=== PATIENT | male | born 1960 | race Caucasian/White ===

== ENCOUNTER 2016-11-01 00:16 | Inpatient (IN) | payer OTHER ==
[~2016-11-01] VITALS: Ht 172.7 cm; Wt 75.7 kg
[2016-11-01] VITALS (23 sets, daily range): BP systolic 86–145; BP diastolic 43–92
--- NOTE | ~2016-11-01 | PR ---
[place], [place] PROGRESS NOTE [id number] UNIT #: [id number] ROOM: [place] [address] DOCTOR: FRANCO KITCHEN MD BIRTHDATE: [birth year] DOS: 11/02/2016 CARDIOLOGY PROGRESS NOTE SUBJECTIVE: The patient was seen today at his bedside in the Intensive Care Unit with the help of a sign industrial millwright. The patient's symptoms have improved overnight. He was able to get a reasonable night's rest. He is now lying flat and states that he is breathing easily. He still does have an upset stomach, but he was able to eat breakfast. His breathing has improved, and he denies any chest pain. PHYSICAL EXAMINATION: VITAL SIGNS: His pulse is 62 and regular, blood pressure is 92/41. He does have a low-grade fever of 99.8, oxygen saturation is 96% with supplemental nasal cannula oxygen. HEENT: Normocephalic, atraumatic. Extraocular muscles are intact. NECK: Supple. He has mild jugular distention with hepatojugular reflux. Carotids are full without bruits. LUNGS: Respirations are unlabored at rest. He does have scattered wheezes and a few crackles in the right lung more than the left. He has no presacral edema or chest wall tenderness. HEART: Has a regular rhythm. He has a fourth and a third heart sound. The PMI is somewhat displaced laterally. ABDOMEN: Soft and normoactive. EXTREMITIES: Showed no edema. LABORATORY DATA: Hemoglobin is 12.5, white count 8500, platelet count 150,000. Sodium 141, potassium 3.9, BUN 20, creatinine 1.46. Troponin levels have remained constant at about 0.05 without any diagnostic rise or fall. IMPRESSION: 1. Severe ischemic cardiomyopathy. 2. Chronic systolic congestive heart failure with acute exacerbation. 3. Acute renal insufficiency. 4. Presentation consistent with acute gastroenteritis complicated by hypotension, I believe that our fluid resuscitation of this process resulted in his acute congestive heart failure. He seems to be stabilizing now. PLAN: We will continue supportive care. Once he has stabilized further, I think that a reassessment by the lime sludge kiln operator at [facility] would be appropriate to see if he is a candidate for biventricular pacing. We thank the hospitalist service for asking our advice regarding his care. [place], [place] PROGRESS NOTE NAME: JOSE SIMENTAL UNIT #: [id number] ROOM: [place] [address] DOCTOR: FRANCO KITCHEN MD BIRTHDATE: [birth year] FRANCO KITCHEN MD CM:PNTRANS [phone] FRANCO KITCHEN MD 11/03/16 0124 interface
--- NOTE | ~2016-11-01 | PR ---
[place], [place] PROGRESS NOTE [id number] UNIT #: [id number] ROOM: 512 DOCTOR: FRANCO KITCHEN MD BIRTHDATE: [birth year] DOS: 11/06/2016 CARDIOLOGY PROGRESS NOTE SUBJECTIVE: The patient was seen today 11/06/2016 prior to his being discharged to home. He feels considerably better, although he still does have some epigastric tenderness. His breathing is good. He has no peripheral edema. PHYSICAL EXAMINATION: VITAL SIGNS: His pulse is 63 and regular, blood pressure is 110/50. He is afebrile. NECK: Supple. He has no jugular distention. CHEST: Clear. HEART: Has a regular rhythm. EXTREMITIES: Showed no edema. LABORATORY DATA: Hemoglobin is 10.4. Sodium is 143, potassium 3.6, BUN 17, creatinine 0.96. MEDICATIONS: At the time of discharge include atorvastatin 80 mg per day, metoprolol 12.5 mg twice a day, furosemide 20 mg daily, pantoprazole 40 mg daily, prednisone on a tapering dose schedule, doxycycline 100 mg twice a day, Carafate 1 gram twice a day, metoclopramide 5 mg at h.s., Entresto 24/ one daily, senna twice a day p.r.n., aspirin 325 mg daily, formoterol by inhaler 2 puffs every 12 hours, and amiodarone 200 mg twice a day. I would like to see him back in the office in about 2 to 3 weeks. I think that he also should be reassessed by our scrip clerk and considered for upgrade of his ICD to a biventricular cardiac synchronization device. We will arrange for that when we see him in our office for followup. I thank the hospitalist physicians for asking our advice regarding his care. FRANCO KITCHEN MD CM:PNTRANS [id number] FRANCO KITCHEN MD 12/13/16 1341 interface
--- NOTE | ~2016-11-01 | CON ---
[place], [place] REPORT OF CONSULTATION NAME: JOSE SIMENTAL UNIT #: [id number] ROOM: 512 DOCTOR: PEPE SCHERER,VICTOR M BIRTHDATE: [birth year] DOS: GASTROENDOSCOPIC CONSULTATION REPORT HISTORY OF PRESENT ILLNESS: The patient has presented with chief complaint of epigastric abdominal pain, nausea, vomiting to the emergency room, atypical chest pain as well. The patient has been taking aspirin at home. PAST MEDICAL HISTORY: Anxiety, COPD, cardiomyopathy, history of hypertension, hyperlipidemia, deaf and nicotine dependent person. PAST SURGICAL HISTORY: Coronary artery stent. SOCIAL HISTORY: Nonalcohol drinker. Smoker. Cannabis consumer. FAMILY HISTORY: Noncontributory. ALLERGIES: NICOTINE. MEDICATIONS: List has been reviewed including aspirin, pantoprazole, and multiple others reviewed. REVIEW OF SYSTEMS: HEENT: Denies double vision, blurred vision. RESPIRATORY: Denies shortness of breath. CARDIOVASCULAR: Atypical chest pain. DIGESTIVE SYSTEM: Epigastric abdominal pain. PHYSICAL EXAMINATION: VITAL SIGNS: Stable. GENERAL: Epigastric distress, deaf, very difficult to communicate, however. HEENT: Benign. NECK: Supple, no thyromegaly, no cervical lymphadenopathy. CHEST: Symmetric anatomy, equal expansion. No wheeze, no rhonchi. HEART: Normal sinus rhythm, no gallop, no murmur. ABDOMEN: Soft. No hepato-organomegaly. Bowel sounds present. EXTREMITIES: No cyanosis, no pedal edema. NEUROLOGIC: Alert and oriented, very hard of hearing. LABORATORY DATA: Reviewed. Records reviewed. Electrolytes balanced. H and H 11 and 36, white blood cell 8.9. Labs and records reviewed. CBC, differentials, troponins all reviewed. IMPRESSION: Epigastric distress, dyspepsia, abdominal pain, very hard of hearing. PLAN AND DISCUSSION: We are going to endoscopically assessed and clinical reevaluation. Thank you very much indeed. [place], [place] REPORT OF CONSULTATION NAME: JOSE SIMENTAL UNIT #: [id number] ROOM: 512 DOCTOR: PEPE SCHERER,VICTOR M BIRTHDATE: [birth year] Other adjunctive diagnoses as outlined in paragraph of past medical, surgical history expressed above. VICTOR M CANTU MD CM:CONSTR:REPORT OF CONSULTATION 1640 12/13/16 1343 interface
--- NOTE | ~2016-11-01 | PR ---
[place], [place] PROGRESS NOTE NAME: JOSE SIMENTAL UNIT #: [id number] ROOM: 512 DOCTOR: FRANCO KITCHEN MD BIRTHDATE: [birth year] DOS: 11/05/2016 SUBJECTIVE: The patient was seen at his bedside today for followup of his severe ischemic cardiomyopathy, chronic congestive heart failure and atypical chest pain. This morning, he was feeling well, but now he does have some epigastric and mid chest pain. He seems to think that his stomach is the problem. He does not appear to be particularly uncomfortable. PHYSICAL EXAMINATION: VITAL SIGNS: Today, his pulse is 60 and regular. Blood pressure is 98/50. He is afebrile. NECK: Supple. He has no jugular distention. His carotids are full. LUNGS: Respirations are unlabored. His chest is clear. HEART: Regular rhythm with an S4 gallop and a soft S3. ABDOMEN: Slightly distended, and he is tender in the epigastrium. He does admit that palpation of the abdomen makes his chest discomfort, worse. EXTREMITIES: Showed no significant edema. LABORATORY DATA: I reviewed his monitor strips. He has been in sinus rhythm with a bundle branch block. I think that his current symptoms are more related to his gastritis than they are his underlying cardiac disease. IMPRESSION: 1. Acute gastritis. 2. Severe ischemic cardiomyopathy. 3. Chronic congestive heart failure, which appears to be fairly well compensated. 4. Low output cardiac failure. 5. History of hypertension. 6. History of hyperlipidemia. 7. Obstructive lung disease. 8. Presence of implantable cardioverter defibrillator. 9. Gastroesophageal reflux disease. PLAN: We will treat him symptomatically today with Mylanta. He is being treated also for possible pneumonitis. Once his noncardiac issues have settled, we will discuss referring him back to the sap developer to consider upgrading his ICD to a biventricular device. We thank the hospitalist group for asking our advice regarding his care. [place], [place] PROGRESS NOTE NAME: JOSE SIMENTAL UNIT #: [id number] ROOM: 512 DOCTOR: FRANCO KITCHEN MD BIRTHDATE: [birth year] FRANCO KITCHEN MD CM:PNTRANS [phone] FRANCO KITCHEN MD 11/06/16916 interface
--- NOTE | ~2016-11-01 | PR ---
[place], [place] PROGRESS NOTE NAME[id number] UNIT #: [id number] ROOM: 512 DOCTOR: FRANCO KITCHEN MD BIRTHDATE: [birth year] DOS: 11/04/2016 SUBJECTIVE: The patient was seen at his bedside today, 11/04/2016, for followup of his ischemic cardiomyopathy and chest pain. He is comfortable today and has not had any further chest pain. He is breathing easily and lying almost flat in bed. OBJECTIVE: VITAL SIGNS: Today, his pulse is 62 and regular, blood pressure is 107/56. He is afebrile. He weighs 75.8 kg with a body mass index of 25.4. NECK: Supple. He does not have jugular distention. Carotids are full. LUNGS: Respirations are unlabored. His chest is clear. HEART: Has a regular rhythm with an S4 and an S3 gallop. ABDOMEN: Soft. EXTREMITIES: Showed no edema. IMPRESSION: 1. Severe ischemic cardiomyopathy. The patient appears to be clinically compensated without any evidence of heart failure at this time. 2. Chest pain. This appears to be more related to dyspepsia on this admission. He has not shown any signs of acute coronary ischemia. 3. History of hypertension. 4. Chronic obstructive pulmonary disease. 5. Gastroesophageal reflux disease and gastritis. 6. Left bundle-branch block. 7. Implantable cardioverter defibrillator in place. PLAN: We will continue his current medical regimen. When he is more stable, an electrophysiology reassessment should be obtained to consider whether he is a candidate for a biventricular resynchronization upgrade to his ICD. We thank the hospitalist group for asking our advice regarding his care. FRANCO KITCHEN MD CM:PNTRANS 16 [phone] FRANCO KITCHEN MD 11/05/161809 interface
--- NOTE | ~2016-11-01 | O ---
[place], [place] OPERATIVE NOTE [facility]: [id number] UNIT #: [id number] ROOM: 512 DOCTOR: PEPE SCHERER,VICTOR M BIRTHDATE: [birth year] DOS: INDICATION: The patient is undergoing investigation for epigastric atypical chest pain. PROCEDURE: Today's procedure part of investigation is panendoscopy plus biopsy. PREMEDICATION: Versed and Diprivan. SCOPE: Olympus forward-viewing gastroscope, Q10 video. REPORT: After putting the patient in the left lateral position and after application of lubricant to the scope, the scope was introduced; thereafter, under direct visualization, I advanced through the length of the esophagus without difficulty. Bile reflux was noticed. Gastritis was seen. Photographic series obtained. Duodenal bulb, second and third part within normal limits. The patient extubated, tolerated procedure well. IMPRESSION AND PLAN: Bile reflux, gastritis, status post biopsy. PLAN AND DISCUSSION: Supportive management, clinical reassessment. Thank you very much indeed. Protonix was recommended 40 mg every day. On the other hand due to small hiatal hernia has been noticed, it is not a major issue; however, I think in view of the ambiguity of the history and expression on this patient, the CT scan of the abdomen and pelvis would be recommended. VICTOR M CANTU MD CM:OPRECORD:OPERATIVE NOTE 1640 0 VICTOR M CANTU MD 11/04/16620 interface
[~2016-11-01 00:16] MED LIST: ALBUTEROL0.09 MG/A1 INH; ALBUTEROL0.09 MG/A2 IH; ALDACTONE PO; ALDACTONE25 MG PO; AMIODARONE HCL200 MG PO; ASPIR-TRIN325 MG PO; CARDOXIN0.25 MG PO; CIPROFLOXACIN500 MG PO; COLACE100 MG PO; COREG12.5 MG PO; COREG3.125 MG PO; COREG6.25 MG PO; COUMADIN2.5 M1 PO; COUMADIN5 M2 PO; Coumadin3 MG PO; DELTASONE20 MG PO; DIGITEK0.125 MG PO; DOXYCYCLINE HY100 M5 PO; DOXYCYCLINE100 M3 PO; DULE1ARO1 INH; DULER200 PO; EFFIENT10 M1 PO; ENTRESTO 24 MG1 EACH PO; FLAGYL500 MG PO; HYDROCODONE BIT1 T11 PO; IMDUR SA30 MG PO; JANTOVEN2.5 MG PO; JANTOVEN4 M1 PO; JANTOVEN5 MG PO; KEFLEX500 MG PO; LASIX40 MG PO; LEVOFLOXACIN500 MG PO; LISINOPRIL2.5 MG PO; MEDROL DOSEPAK4 MG PO; METOPROLOL SUCC25 M2 PO; MOTRIN800 MG PO; NICODERM C14 MG/24 H TD; NORCO 325 MG-51 TAB PO; OMEPRAZOLE D/R20 MG PO; PACERONE200 MG PO; PEN-VEE K500 MG PO; PERCOCET 325 MG1 TA7 PO; PRAVACHOL40 MG PO; PRAVASTATIN SOD40 MG PO; PREDNISONE10 MG PO; PREDNISONE20 MG PO; PRILOSEC20 M1 PO; PROAIR HFA0.09 MG/AC INH; PROTONIX20 MG PO; RANEXA500 M1 PO; SENNA8.6 MG PO; SINGULAIR10 MG; VICODIN 5/500 505 MG PO; VOLTAREN50 MG PO; ZITHROMAX Z PA250 MG PO; ZITHROMAX500 MG PO; [UNRECOGNIZED DRUG - REMARK]
[2016-11-01 00:46] LABS: BASO % 0.5 % (0.0-1.0); EOS % 0.1 % (1.0-4.0); HEMATOCRIT 40.7 % (42.0-52.0); HEMOGLOBIN 13.3 g/dl (14.0-18.0); LYMPH # 1.3 10*3/uL (1.3-4.4); LYMPH % 14.8 % (27.0-41.0); MEAN CELL VOLUME 95.5 fl (80.0-94.0); MEAN CORPUSCULAR HGB 31.2 pg (27.0-31.0); MEAN CORPUSCULAR HGB CONC 32.7 g/dl (33.0-37.0); MEAN PLATELET VOLUME 10.9 fl (9.6-12.3); MONO # 0.7 10*3/uL (0.1-1.0); MONO % 8.3 % (3.0-9.0); NEUT # 6.4 10*3/uL (2.3-7.9); NEUT % 75.9 % (47.0-73.0); PLATELET COUNT AUTOMATED 150 10*3/uL (130-400); RED BLOOD COUNT 4.26 10*6/uL (4.50-5.90); RED CELL DISTRI WIDTH 13.7 % (0-14.5); WHITE BLOOD COUNT 8.5 10*3/uL (4.8-10.8)
[2016-11-01 01:00] LABS: BUN 11 mg/dl (7-24); CARBON DIOXIDE 26 mmol/L (21-32); CHLORIDE 107 mmol/L (98-107); EST GLOM FILT AFRICAN AMERICAN > 60 ml/min; GLUCOSE 103 mg/dL (65-99); POTASSIUM 3.6 mmol/L (3.5-5.1); SODIUM 140 mmol/L (136-145)
[2016-11-01 06:06] LABS: BASO % 0.5 % (0.0-1.0); EOS % 0.2 % (1.0-4.0); HEMOGLOBIN 12.1 g/dl (14.0-18.0); LYMPH # 1.5 10*3/uL (1.3-4.4); LYMPH % 17.8 % (27.0-41.0); MEAN CELL VOLUME 94.6 fl (80.0-94.0); MEAN CORPUSCULAR HGB 30.9 pg (27.0-31.0); MEAN CORPUSCULAR HGB CONC 32.7 g/dl (33.0-37.0); MEAN PLATELET VOLUME 11.2 fl (9.6-12.3); MONO # 0.8 10*3/uL (0.1-1.0); MONO % 9.8 % (3.0-9.0); NEUT # 6.1 10*3/uL (2.3-7.9); NEUT % 71.3 % (47.0-73.0); PLATELET COUNT AUTOMATED 151 10*3/uL (130-400); RED BLOOD COUNT 3.91 10*6/uL (4.50-5.90); RED CELL DISTRI WIDTH 13.7 % (0-14.5); WHITE BLOOD COUNT 8.5 10*3/uL (4.8-10.8)
[2016-11-01 06:09] LABS: CKMB 0.8 ng/ml (0.5-3.6)
[2016-11-01 06:43] LABS: ALBUMIN 3.2 gm/dl (3.1-4.5); ALKALINE PHOSPHATASE 49 U/L (45-117); BILIRUBIN, TOTAL 0.6 mg/dl (0.2-1.0); BUN 11 mg/dl (7-24); CARBON DIOXIDE 24 mmol/L (21-32); CHLORIDE 107 mmol/L (98-107); EST GLOM FILT AFRICAN AMERICAN > 60 ml/min; GLUCOSE 88 mg/dL (65-99); POTASSIUM 3.4 mmol/L (3.5-5.1); SGOT/AST 12 IU/L (3-35); SGPT/ALT 20 U/L (12-78); SODIUM 142 mmol/L (136-145); TOTAL PROTEIN 6.2 gm/dL (6.4-8.2)
[2016-11-01 06:45] LABS: FREE T4 1.31 ng/dl (0.76-1.46); MAGNESIUM 1.7 mg/dL (1.5-2.1); THYROID STIM HORMONE (HS) 0.304 uIU/ml (0.358-4.75)
[2016-11-01 08:26] LABS: FOLIC ACID 11.81 ng/mL (>5.38)
[2016-11-01 15:22] LABS: ABG HCO3 22.4 mmol/l (22-26); ABG TEMPERATURE 98.7 F (98.0-99.0); ARTERIAL BLOOD GAS PH 7.25 (7.35-7.45); ARTERIAL BLOOD GAS PO2 72.3 mmHg (80-90)
[2016-11-01 15:23] LABS: ABG BASE EXCESS -5.1 mmol/L (-2.0-2.0)
[2016-11-01 16:51] LABS: ABG HCO3 25.2 mmol/l (22-26); ABG TEMPERATURE 98.7 F (98.0-99.0); ARTERIAL BLOOD GAS PH 7.246 (7.35-7.45)
[2016-11-01 16:54] LABS: ARTERIAL BLOOD GAS PO2 35.5 mmHg (80-90)
[2016-11-01 19:05] LABS: CKMB 1.3 ng/ml (0.5-3.6)
[2016-11-02] VITALS: BP 86/42; BP 94/46
[2016-11-02 04:00] VITALS: BP 90/46
[2016-11-02 05:57] LABS: BASO % 0.5 % (0.0-1.0); EOS % 0.2 % (1.0-4.0); HEMATOCRIT 38.6 % (42.0-52.0); HEMOGLOBIN 12.5 g/dl (14.0-18.0); LYMPH # 1.6 10*3/uL (1.3-4.4); LYMPH % 18.7 % (27.0-41.0); MEAN CELL VOLUME 96.5 fl (80.0-94.0); MEAN CORPUSCULAR HGB 31.3 pg (27.0-31.0); MEAN CORPUSCULAR HGB CONC 32.4 g/dl (33.0-37.0); MEAN PLATELET VOLUME 10.7 fl (9.6-12.3); MONO % 11.6 % (3.0-9.0); NEUT # 5.8 10*3/uL (2.3-7.9); NEUT % 68.6 % (47.0-73.0); PLATELET COUNT AUTOMATED 150 10*3/uL (130-400); RED CELL DISTRI WIDTH 13.6 % (0-14.5); WHITE BLOOD COUNT 8.5 10*3/uL (4.8-10.8)
[2016-11-02 06:15] LABS: BUN 20 mg/dl (7-24); CARBON DIOXIDE 30 mmol/L (21-32); CHLORIDE 101 mmol/L (98-107); EST GLOM FILT AFRICAN AMERICAN > 60 ml/min; GLUCOSE 78 mg/dL (65-99); POTASSIUM 3.9 mmol/L (3.5-5.1); SODIUM 141 mmol/L (136-145)
[2016-11-02 08:00] VITALS: BP 92/40; BP 92/41
[2016-11-02 12:00] VITALS: BP 105/56
[2016-11-02 16:00] VITALS: BP 103/51
[2016-11-02 20:00] VITALS: BP 103/49
[2016-11-03] VITALS (9 sets, daily range): BP systolic 87–107; BP diastolic 40–60
[2016-11-03 06:23] LABS: BASO % 0.2 % (0.0-1.0); EOS % 0.4 % (1.0-4.0); HEMATOCRIT 36.8 % (42.0-52.0); HEMOGLOBIN 11.9 g/dl (14.0-18.0); LYMPH # 1.7 10*3/uL (1.3-4.4); LYMPH % 20.3 % (27.0-41.0); MEAN CELL VOLUME 96.1 fl (80.0-94.0); MEAN CORPUSCULAR HGB 31.1 pg (27.0-31.0); MEAN CORPUSCULAR HGB CONC 32.3 g/dl (33.0-37.0); MEAN PLATELET VOLUME 11.4 fl (9.6-12.3); MONO % 12.1 % (3.0-9.0); NEUT # 5.5 10*3/uL (2.3-7.9); NEUT % 66.8 % (47.0-73.0); PLATELET COUNT AUTOMATED 125 10*3/uL (130-400); RED BLOOD COUNT 3.83 10*6/uL (4.50-5.90); RED CELL DISTRI WIDTH 13.5 % (0-14.5); WHITE BLOOD COUNT 8.3 10*3/uL (4.8-10.8)
[2016-11-03 06:41] LABS: BUN 23 mg/dl (7-24); CARBON DIOXIDE 31 mmol/L (21-32); CHLORIDE 100 mmol/L (98-107); EST GLOM FILT AFRICAN AMERICAN > 60 ml/min; GLUCOSE 90 mg/dL (65-99); POTASSIUM 3.4 mmol/L (3.5-5.1); SODIUM 139 mmol/L (136-145)
[2016-11-04] VITALS: BP 108/49
[2016-11-04 04:00] VITALS: BP 98/46
[2016-11-04 06:43] LABS: BASO % 0.2 % (0.0-1.0); EOS % 0.1 % (1.0-4.0); HEMATOCRIT 33.7 % (42.0-52.0); IG # 0.1 10*3/uL (0.0-0.1); LYMPH # 1.5 10*3/uL (1.3-4.4); LYMPH % 12.4 % (27.0-41.0); MEAN CORPUSCULAR HGB 31.3 pg (27.0-31.0); MEAN CORPUSCULAR HGB CONC 32.6 g/dl (33.0-37.0); MEAN PLATELET VOLUME 11.5 fl (9.6-12.3); MONO # 1.3 10*3/uL (0.1-1.0); MONO % 10.9 % (3.0-9.0); NEUT # 9.1 10*3/uL (2.3-7.9); NEUT % 75.9 % (47.0-73.0); PLATELET COUNT AUTOMATED 122 10*3/uL (130-400); RED BLOOD COUNT 3.51 10*6/uL (4.50-5.90); RED CELL DISTRI WIDTH 13.3 % (0-14.5); WHITE BLOOD COUNT 11.9 10*3/uL (4.8-10.8)
[2016-11-04 07:19] LABS: ALBUMIN 2.8 gm/dl (3.1-4.5); ALKALINE PHOSPHATASE 43 U/L (45-117); BILIRUBIN, TOTAL 0.9 mg/dl (0.2-1.0); BUN 17 mg/dl (7-24); CARBON DIOXIDE 31 mmol/L (21-32); CHLORIDE 101 mmol/L (98-107); EST GLOM FILT AFRICAN AMERICAN > 60 ml/min; GLUCOSE 89 mg/dL (65-99); POTASSIUM 3.4 mmol/L (3.5-5.1); SGOT/AST 9 IU/L (3-35); SGPT/ALT 17 U/L (12-78); SODIUM 140 mmol/L (136-145)
[2016-11-04 08:00] VITALS: BP 102/48
[2016-11-04 12:00] VITALS: BP 104/72
[2016-11-04 16:00] VITALS: BP 107/56
[2016-11-04 20:00] VITALS: BP 128/74
[2016-11-05] VITALS: BP 133/78
[2016-11-05 05:49] LABS: BUN 14 mg/dl (7-24); CARBON DIOXIDE 31 mmol/L (21-32); CHLORIDE 102 mmol/L (98-107); EST GLOM FILT AFRICAN AMERICAN > 60 ml/min; GLUCOSE 99 mg/dL (65-99); POTASSIUM 3.1 mmol/L (3.5-5.1); SODIUM 141 mmol/L (136-145)
[2016-11-05 06:12] LABS: BASO % 0.3 % (0.0-1.0); EOS # 0.1 10*3/uL (0.0-0.4); EOS % 0.9 % (1.0-4.0); HEMATOCRIT 31.5 % (42.0-52.0); HEMOGLOBIN 10.2 g/dl (14.0-18.0); IG # 0.1 10*3/uL (0.0-0.1); LYMPH # 1.5 10*3/uL (1.3-4.4); MEAN CELL VOLUME 96.6 fl (80.0-94.0); MEAN CORPUSCULAR HGB 31.3 pg (27.0-31.0); MEAN CORPUSCULAR HGB CONC 32.4 g/dl (33.0-37.0); MEAN PLATELET VOLUME 11.5 fl (9.6-12.3); MONO % 9.2 % (3.0-9.0); NEUT # 8.3 10*3/uL (2.3-7.9); NEUT % 75.1 % (47.0-73.0); PLATELET COUNT AUTOMATED 125 10*3/uL (130-400); RED BLOOD COUNT 3.26 10*6/uL (4.50-5.90); RED CELL DISTRI WIDTH 13.2 % (0-14.5)
[2016-11-05 08:00] VITALS: BP 98/64
[2016-11-05 12:00] VITALS: BP 98/50
[2016-11-05 16:00] VITALS: BP 96/55
[2016-11-05 20:00] VITALS: BP 113/70
[2016-11-06] VITALS: BP 92/55
[2016-11-06 04:29] LABS: BASO % 0.2 % (0.0-1.0); HEMATOCRIT 31.9 % (42.0-52.0); HEMOGLOBIN 10.4 g/dl (14.0-18.0); LYMPH # 0.6 10*3/uL (1.3-4.4); LYMPH % 9.3 % (27.0-41.0); MEAN CELL VOLUME 96.1 fl (80.0-94.0); MEAN CORPUSCULAR HGB 31.3 pg (27.0-31.0); MEAN CORPUSCULAR HGB CONC 32.6 g/dl (33.0-37.0); MEAN PLATELET VOLUME 11.6 fl (9.6-12.3); MONO # 0.2 10*3/uL (0.1-1.0); NEUT # 5.8 10*3/uL (2.3-7.9); NEUT % 86.9 % (47.0-73.0); PLATELET COUNT AUTOMATED 135 10*3/uL (130-400); RED BLOOD COUNT 3.32 10*6/uL (4.50-5.90); RED CELL DISTRI WIDTH 13.2 % (0-14.5); WHITE BLOOD COUNT 6.7 10*3/uL (4.8-10.8)
[2016-11-06 04:42] LABS: BUN 17 mg/dl (7-24); CARBON DIOXIDE 31 mmol/L (21-32); CHLORIDE 104 mmol/L (98-107); EST GLOM FILT AFRICAN AMERICAN > 60 ml/min; GLUCOSE 125 mg/dL (65-99); POTASSIUM 3.6 mmol/L (3.5-5.1); SODIUM 143 mmol/L (136-145)
[2016-11-06 08:00] VITALS: BP 110/50
[2016-11-06] MEDS ORDERED: FUROSEMIDE20 M1 PO (10:56)
[2016-11-06] MEDS ORDERED: PANTOPRAZOLE SO40 MG PO (10:56)
[2016-11-06] MEDS ORDERED: ATORVASTATIN CA80 M1 PO (10:56)
[2016-11-06] MEDS ORDERED: REGLAN5 MG PO ×2 (10:56→10:59)
[2016-11-06] MEDS ORDERED: LOPRESSOR25 MG PO (10:56)
[2016-11-06] MEDS ORDERED: DOXYCYCLINE100 M3 PO (10:56)
[2016-11-06] MEDS ORDERED: PREDNISONE10 MG PO (10:56)
[2016-11-06] MEDS ORDERED: Carafate1 GM PO (10:59)
[2016-11-09] MEDS ORDERED: DULE1ARO1 INH (06:51)
[2016-11-09] MEDS ORDERED: VENTOLIN H0.09 MG/AC INH (06:53)
== END 2016-11-06 12:42 | disposition home or self-care (01) | DRG 177 ==
LOC: ED 00:16 → EDHOLD 01:58 → ICCU 01:58 → 5E 11-03 16:20
PROVIDERS: Emergency Medicine Emergency Medical Services; Internal Medicine; Student in an Organized Health Care Education/Training Program
PROC: 0DB68ZX Excision of Stomach, Via Natural or Artificial Opening Endoscopic, Diagnostic (ICD-10-PCS; principal; 2016-11-03)
DX: J15.6 Pneumonia due to other Gram-negative bacteria (principal); I50.23 Acute on chronic systolic (congestive) heart failure; J96.00 Acute respiratory failure, unspecified whether with hypoxia or hypercapnia; E44.1 Mild protein-calorie malnutrition; I11.0 Hypertensive heart disease with heart failure; E78.5 Hyperlipidemia, unspecified; J44.9 Chronic obstructive pulmonary disease, unspecified; K21.9 Gastro-esophageal reflux disease without esophagitis; E87.6 Hypokalemia; K29.00 Acute gastritis without bleeding; I44.7 Left bundle-branch block, unspecified; I25.5 Ischemic cardiomyopathy; N28.9 Disorder of kidney and ureter, unspecified; K52.9 Noninfective gastroenteritis and colitis, unspecified; D75.89 Other specified diseases of blood and blood-forming organs; K44.9 Diaphragmatic hernia without obstruction or gangrene; D64.9 Anemia, unspecified; Z95.5 Presence of coronary angioplasty implant and graft; Z90.49 Acquired absence of other specified parts of digestive tract; Z82.49 Family history of ischemic heart disease and other diseases of the circulatory system; Z83.6 Family history of other diseases of the respiratory system; Z95.810 Presence of automatic (implantable) cardiac defibrillator; Z88.8 Allergy status to other drugs, medicaments and biological substances; Z79.82 Long term (current) use of aspirin; Z79.899 Other long term (current) drug therapy; Z68.25 Body mass index [BMI] 25.0-25.9, adult